=== PATIENT | male | born 1980 | race Caucasian/White ===

== ENCOUNTER 2025-01-06 07:44 | Outpatient (CLI) | payer BC, SELFPAY | END 2025-01-06 07:45 | disposition home or self-care (01) | PROVIDERS: PCP Family Medicine; Visit Provider Family Medicine | DX: Z00.00 Encounter for general adult medical examination without abnormal findings (principal); E66.01 Morbid (severe) obesity due to excess calories | CPT/HCPCS: 80048; 80061 ==